=== PATIENT | male | born 1945 | race Caucasian/White ===

== ENCOUNTER → 2019-08-02 14:55 | Outpatient (CLI) | payer MEDICARE, SELFPAY ==
--- NOTE | ~2019-08-02 | CT_ITS ---
EXAMINATION: CT chest w con DATE: 08/02/2019 15:39 INDICATION: Hypoxemia, prior smoker TECHNIQUE: Transaxial computed tomographic images of the chest were obtained after the administration of 75 cc of Omnipaque 350 intravenous contrast. The dose-length product (DLP) was 394.64 mGy-cm. Ite rative reconstruction was used. COMPARISON: None FINDINGS: There is moderate emphysema. A 4 mm nodule is present in the left upper lobe on image 46. T here is dependent atelectasis. No focal airspace opacity is identified. There is mild bilateral hilar lymphadenopathy. The heart size is normal. Calcified atherosclerosis is noted. There is mild thoraci c spondylosis. Areas of hyperattenuation in the liver dome and liver segment III a reflect transient hepatic attenuation difference or flash filling hemangiomas the absence of known malignancy. IMPRESSION: 1. Moderate emphysema. 2. Mild bilateral hilar lymphadenopathy, likely reactive. 3. 4 mm nodule of the left upper lobe. Consider CT follow-up in 12 months. Reviewed, dictated and finalized at location A. [facility]
[2019-08-02 15:24] LABS: Blood Urea Nitrogen 20 mg/dL (8-26); Estimated Glomerular Filt Rate > 60
== END ==
PROVIDERS: PCP Internal Medicine; Visit Provider Nurse Practitioner
DX: R09.02 Hypoxemia (principal); J43.9 Emphysema, unspecified; R91.8 Other nonspecific abnormal finding of lung field
CPT/HCPCS: 71260; Q9967